=== PATIENT | female | born 1965 | race Two or more races ===

== ENCOUNTER → 2018-11-19 | Outpatient (CLI) | payer OTHER ==
[~2018-11-19] MED LIST: AMOX1TAB12 PO; FLAGYL500MG PO; INTESTINEX680 MG PO; POLY119PG PO; ZANTAC150 MG PO
== END | disposition home or self-care (01) ==
LOC: NUCLEAR 15:12
DX: I87.2 Venous insufficiency (chronic) (peripheral) (principal)

== ENCOUNTER 2018-11-20 12:51 | Emergency (ER) | payer OTHER ==
[~2018-11-20] VITALS: Ht 167.6 cm; Wt 81.6 kg
== END 2018-11-20 19:11 | disposition home or self-care (01) ==
LOC: ER 12:51
DX: B34.9 Viral infection, unspecified (principal)

== ENCOUNTER 2019-01-24 06:07 | Emergency (ER) | payer OTHER ==
[~2019-01-24] VITALS: Ht 167.6 cm; Wt 77.1 kg
== END 2019-01-24 10:23 | disposition home or self-care (01) ==
LOC: ER 06:07
DX: B34.9 Viral infection, unspecified (principal)

== ENCOUNTER → 2019-08-22 12:32 | Outpatient (CLI) | payer OTHER | END | disposition home or self-care (01) | LOC: LAB 12:32 | DX: J11.1 Influenza due to unidentified influenza virus with other respiratory manifestations (principal) ==

== ENCOUNTER 2021-08-26 14:42 | Outpatient (CLI) | payer OTHER | END 2021-08-26 14:51 | disposition home or self-care (01) | LOC: RAD 14:42 | PROVIDERS: ATTEND Orthopaedic Surgery | DX: M79.641 Pain in right hand (principal) ==

== ENCOUNTER 2023-12-18 07:40 | Outpatient (CLI) | payer OTHER | END 2023-12-18 07:48 | disposition home or self-care (01) | LOC: TOM 07:40 | DX: R10.2 Pelvic and perineal pain (principal); K57.92 Diverticulitis of intestine, part unspecified, without perforation or abscess without bleeding ==

== ENCOUNTER 2024-03-31 08:29 | Outpatient (CLI) | payer OTHER | END 2024-03-31 08:30 | disposition home or self-care (01) | LOC: NUCLEAR 08:29 | PROVIDERS: ATTEND Internal Medicine Sports Medicine | DX: I87.2 Venous insufficiency (chronic) (peripheral) (principal); I82.403 Acute embolism and thrombosis of unspecified deep veins of lower extremity, bilateral ==